=== PATIENT | male | born 1945 | race Caucasian/White ===

== ENCOUNTER → 2022-05-26 | Outpatient (CLI) | payer MEDICARE ==
[~2022-05-26] MED LIST: ACET650T61 PO; ALLO100T PO; ATOR1TAB19 PO; AVAL300T14 PO; CO Q100C10 PO; COQ10 PO; COUM2.5T17 PO; CVS50CAP PO; DOCU5LIQ PO; DOXAZOSIN PO; DULO1CAP5 PO; FISHCAP PO; GABA-282 PO; HYDR12.55 PO; IRBE300T12 PO; LEVO100T5 PO; LEVOTHROID PO; LEVOTHROXIN PO; MELOPOW PO; MOBIC PO; OMEP40CA5 PO; OMEPPOW18 PO; OXYC1TAB23 PO; PERCOCET PO; POLYETHYLENE GLYCOL PO; STOOL SOFTNER PO; TAMS1CAP17 PO; VERA120T67 PO; VERAPAMIL PO
== END ==
LOC: M LABSMTC 10:17
PROVIDERS: ATTEND Anesthesiology
DX: Z01.818 Encounter for other preprocedural examination (principal); Z11.52 Encounter for screening for COVID-19

== ENCOUNTER 2022-05-28 09:47 | Day surgery (SDC) | payer MEDICARE ==
[~2022-05-28] VITALS: Ht 177.8 cm; Wt 93.9 kg
[~2022-05-28 09:47] MED LIST changes: +BSS IRRIG/VANCO(10MG)/TOBRA(5MG)/EPINEPH(1:1000-0.5CC)500ML BAG-ORONLY IR ONE; +CEFUROXIME 1MG/0.1ML INTRACAMERAL INJ As Ordered ONE; +CYCLOPENTOLATE 1% OPHTH SOLN 2 ML BTL OS SCH; +LIDOCAINE 1% SDV 5ML VIAL As Ordered ONE; +LIDOCAINE 3.5 % 1ML OPHTH TOPICAL GEL OU ONE; +MIDAZOLAM INJ 2MG/2ML VIAL (J2250 PER 1MG) As Ordered ONE; +OFLOXACIN 0.3 % (OCUFLOX) OPTH SOL 5ML OS ONE; +PHENYLEPHRINE 2.5% OPHTH SOL 2ML OS SCH; +PHENYLEPHRINE HCL 10 % OPHTH. SOL 5ML OS PRN; +TROPICAMIDE 1% OPHTH SOLN 2ML OS SCH; +fentaNYL 100 MCG/2 ML INJECTION As Ordered ONE
[2022-05-28 11:57] VITALS: BP 124/62
[2022-05-28] MEDS ORDERED: PROPARACAINE 0.5% OPHTH SOL 15ML OS ONE (12:25)
== END 2022-05-28 12:43 | disposition home or self-care (01) ==
LOC: M SDC 09:47
PROVIDERS: ATTEND Ophthalmology
DX: H25.12 Age-related nuclear cataract, left eye (principal); H21.81 Floppy iris syndrome; I10 Essential (primary) hypertension; E78.5 Hyperlipidemia, unspecified; E03.9 Hypothyroidism, unspecified; Z91.041 Radiographic dye allergy status; Z91.013 Allergy to seafood; Z87.891 Personal history of nicotine dependence; Z79.899 Other long term (current) drug therapy; M10.9 Gout, unspecified; F32.A Depression, unspecified; K21.9 Gastro-esophageal reflux disease without esophagitis
CPT/HCPCS: 66982; J0697; J2250; J3010; V2632